=== PATIENT | female | born 1985 | race Caucasian/White ===

== ENCOUNTER → 2016-12-31 | Outpatient (CLI) | payer SELFPAY ==
[~2016-12-31] VITALS: Ht 152.4 cm; Wt 87.5 kg
[~2016-12-31] MED LIST: PREN1TAB79 PO
[2016-12-31 01:35] VITALS: BP 119/73; PULSE 72; RESP 20; BMI 37.7
--- NOTE | 2016-12-31 02:45 | TRIAGE ---
OB Triage Datetime Report Generated by CPN: 12/31/2016 02:45 Datetime: 12/31/2016 02:26 Time Provider Notified: 12/31/2016 02:26 Datetime: 12/31/2016 02:15 EGA: 38.6 Datetime: 12/31/2016 02:14 Membrane Status: Intact Datetime: 12/31/2016 01:45 Time Provider Notified: 12/31/2016 01:45 Datetime: 12/31/2016 01:35 Stage of : OB Triage Assessment Type: Triage Maternal Assessment Level of Consciousness: Fully Conscious DTR's/Clonus: DTRs 2+; No Clonus Headache: Denies Blurred Vision: No Respiratory Effort: Unlabored; Regular Rhythm; Equal Expansion Breath Sounds, Left: Clear and Equal Breath Sounds, Right: Clear and Equal Nausea/Vomiting: Denies RUQ Epigastric Pain: Denies Lower Extremities Edema: Bilateral Lower Extremities Degree: 1+ Upper Extremities Edema: None Degree: None Facial Edema: None Temperature Route: Oral Fall Risk Assessment History of Falling: (0) No Secondary Diagnosis: (0) No Ambulatory Aid: (0) Bedrest/Nurse Assist IV Therapy: (0) No Gait: (0) Normal/Bedrest/Immobile Mental Status: (0) Oriented to Own Ability Fall Score: 0 Fall Risk Score Definition: No Risk: No action required Pain Assessment Pain Scale: 8 Pain Presence: Intermittent Pain Type: Contraction Pain Location: Abdomen Pain Relief Measures: Comfort Measures Datetime: 12/31/2016 01:33 Vaginal Exam Dilatation (cms): 3.0 Effacement (%): 70 Station: -3 Exam By: Luz Mcelroy RN Membrane Status: Intact Datetime: 12/31/2016 01:30 Labor Evaluation Monitor Mode: External (Annotations: applied ) Quality: Moderate (Annotations: by palpation) Heart Rate Monitor Mode: External US (Annotations: applied) Datetime: 12/31/2016 01:21 Time of Arrival: 12/31/2016 01:21 Arrived By: Wheelchair Arrived From: Home Chief Complaint: CONTRACTIONS SINCE 12/31/16 AT 2300 Movement: Present Contractions: Irregular Time Contractions Began: 12/30/2016 23:00 Rupture of Membranes: Denies Vaginal Bleeding: None Vaginal Discharge: Denies Recent Sexual Intercouse: Denies Abdominal Trauma: Not Applicable Patient Complaints: Contractions Initial Plan: ISAAC, JONG X2
== END | disposition home or self-care (01) ==
LOC: L-D 01:21 → OBT 01:21
PROVIDERS: ATTEND Obstetrics & Gynecology
DX: O62.8 Other abnormalities of forces of labor (principal); Z3A.38 38 weeks gestation of pregnancy